=== PATIENT | female | born 1990 | race Two or more races ===

== ENCOUNTER → 2022-04-07 13:58 | Outpatient (BNVA) | payer MEDICARE, MEDICAID, SELFPAY | PROVIDERS: PCP Internal Medicine; Visit Provider Nurse Practitioner Family | DX: G43.109 Migraine with aura, not intractable, without status migrainosus (principal); G44.209 Tension-type headache, unspecified, not intractable; F31.9 Bipolar disorder, unspecified | CPT/HCPCS: 99202 ==

== ENCOUNTER → 2022-06-16 09:27 | Outpatient (BNVA) | payer MEDICARE, MEDICAID, SELFPAY | PROVIDERS: PCP Internal Medicine; Visit Provider Nurse Practitioner Family | DX: G43.109 Migraine with aura, not intractable, without status migrainosus (principal); G44.209 Tension-type headache, unspecified, not intractable; I26.99 Other pulmonary embolism without acute cor pulmonale | CPT/HCPCS: 99212 ==

== ENCOUNTER → 2022-08-12 11:41 | Outpatient (BNVA) | payer MEDICARE, MEDICAID, SELFPAY | PROVIDERS: PCP Internal Medicine; Visit Provider Nurse Practitioner Family | DX: G43.109 Migraine with aura, not intractable, without status migrainosus (principal); F31.9 Bipolar disorder, unspecified | CPT/HCPCS: Q3014 ==

== ENCOUNTER → 2022-09-01 10:30 | Outpatient (BNVA) | payer MEDICARE, MEDICAID, SELFPAY | PROVIDERS: PCP Internal Medicine; Visit Provider Nurse Practitioner Family | DX: G43.109 Migraine with aura, not intractable, without status migrainosus (principal); F31.9 Bipolar disorder, unspecified | CPT/HCPCS: 99211 ==

== ENCOUNTER 2023-05-05 15:25 | Outpatient (AMB) | payer MEDICARE, MEDICAID, SELFPAY ==
--- NOTE | 2023-05-05 15:27 | A.OFFVIS_ITS ---
Intake Intake Visit Reasons: follow up (iphone) Intake Note: Pt presents as a telehealth visit. Pt states shes been getting more headaches and migraines so thats why she wanted to follow up with Yahaira sooner. Tierce Filler Required: No Allergies trazodone Allergy (Mild, Verified 05/05/23 15:28) Agitated Medication List - Last Reconciled 05/05/23 by SASHA Flores ascorbic acid (vitamin C) PO DAILY ashwagandha extract PO DAILY betamethasone, augmented 0.05 % appl topical BID blood sugar diagnostic (FreeStyle Lite Strips) As directed buprenorphine-naloxone 2-0.5 mg 2 mg sublingual DAILY cetirizine 10 mg PO DAILY cholecalciferol (vitamin D3) PO DAILY citalopram 2.5 mg PO DAILY clonazepam 0.5 mg PO BID PRN clonazepam mg PO clonidine HCl 0.2 mg PO BEDTIME dicyclomine 10 mg PO Q6H PRN fluticasone propionate 50 mcg/actuation sprays intranasal gabapentin 400 mg PO TID galcanezumab-gnlm (Emgality Pen) 120 mg subcut ONCE 30 days lyvelfqm-dnlmz-potov-CF borate 750 mg-100 mg- 1.65 mg-108 mg ([facility]) tabs PO hydroxyzine HCl 10 mg PO TID PRN hydroxyzine pamoate 50 mg PO DAILY PRN hyoscyamine sulfate 0.125 mg PO QID PRN linaclotide (Linzess) 290 mcg PO DAILY loratadine 10 mg PO DAILY lurasidone 80 mg PO DAILY magnesium oxide 400 mg PO BEDTIME 30 days multivitamin 1 tab PO DAILY omeprazole 20 mg PO DAILY prazosin 10 mg PO BEDTIME quetiapine mg PO riboflavin (vitamin B2) 400 mg PO DAILY 30 days rivaroxaban (Xarelto) 10 mg PO DAILY rizatriptan 5 - 10 mg (0.5 - 1 x 10 mg) PO Q2H PRN 21 days semaglutide (Ozempic) mg subcut sennosides (senna) 0 mg PO tizanidine 4 mg PO BID PRN trospium ER 60 mg PO DAILY [zinc PO DAILY] HPI HPI Comments History of Present Illness Details 32-yr-old female presents for f/u televideo visit. Pt denies any significant interval medical changes. Her Eliquis was changed to Xarelto as she completed one yr w/ Eliquis- and was switched to Xarelto d/t family h/o clotting d/o. Pt states she was doing very well on Emgality, however due to a pharmacy issue, she was 2 weeks late in taking her Emgality injection and has had a significant increase in migraine attacks. She also thinks possibly the recent weather changes have also worsened her migraine burden. She is finding the Rizatriptan to not be as effective. She has had 15-16 headcahe days in the last month. [facility] Medical History delivery delivered Depression History of diabetes mellitus PTSD (post-traumatic stress disorder) Pulmonary embolism Surgical History History of gastric stapling Hx of knee surgery Social History (Updated 05/05/23 @ 15:41 by Chika Boyce CMA) Household Members: Spouse and Children Alcohol intake: current Alcohol intake frequency: a few times a month Patient Tobacco Use Status: Current everyday Tobacco user Review of Systems Const All systems reviewed & are unremarkable except as noted in HPI and below Physical Exam Const General: cooperative and no acute distress Orientation/consciousness: patient oriented x3 Resp Effort & Inspection: normal respiratory effort and able to speak in complete sentences Neuro General: patient oriented x3 Cognition (Neuro): normal cognition Psych Appearance: grossly normal Mental Status: mental status grossly normal Speech and movement: Normal speech and movement present Affect: normal affect Attitude: cooperative Assessment & Plan Assessment & Plan (1) Migraine with aura: Code(s): G43.109 - Migraine with aura, not intractable, without status migrainosus (2) Tension type headache: Code(s): G44.209 - Tension-type headache, unspecified, not intractable Plan For acute migraine treatment: Trial Eletriptan prn. May take with Tylenol. Trial Nurtec ODT 75mg qd prn. May take with Tylenol. Hold rizatriptan- has lost efficacy. Avoid NSAIDs d/t current Eliquis use. Previous trials: Sumatriptan- ineffective and made her feel weird. ? For migraine prevention treatment: Continue magnesium 400 mg q.h.s.. Continue riboflavin 400 mg Q morning. Continue gabapentin. Continue Emgality 120mg sc q month- possibly increase in monthly migraine days has been caused by 2 week delay in last Emgality inj. Future considerations- Retrying Botox or trying Atogepant. Previous migraine prevention trials: Topiramate was ineffective and caused dry mouth. Propranolol 10 mg twice a day- caused lightheadedness. Botox helped- but had end of cycle wearing off. Migraine Tx contraindications: Amitriptyline or other TCAs/SSRIs/SSNRIs d/t h/o bipolar type I. Medications: New eletriptan take 1 tab at onset of headache; if no relief, may repeat 1 tab after at least 2 hrs; max = 2 tabs/24 hrs orally every 2 hours PRN; 14 tabs 3RF migraine headache 30 days rimegepant (Nurtec ODT) take 1 tab at onset of migraine (max 1 tab per day) 75 mg PO ONCE PRN 16 tabs 3RF migraine headache 30 days Telehealth Telehealth Location of provider rendering services: practice address Location of patient: address on file Patient Identification confirmed using: Name, : Yes Telehealth method: video Patient verbally consented to treatment: Yes Patient verbally consented to billing insurance company: Yes Patient informed of any privacy concerns related to visit: Yes Minutes spent on Phone/Video with Pt.: 8 Coding Level of Care Code Tele Est Pt Level 4 (03221) Diagnoses Migraine with aura G43.109 Tension type headache G44.209
== END 2023-05-05 16:00 ==
PROVIDERS: Visit Provider Nurse Practitioner Family
DX: G43.109 Migraine with aura, not intractable, without status migrainosus (principal); G44.209 Tension-type headache, unspecified, not intractable
CPT/HCPCS: 99441

== ENCOUNTER → 2023-05-05 15:25 | Outpatient (BNVA) | payer MEDICARE, MEDICAID, SELFPAY | PROVIDERS: Visit Provider Nurse Practitioner Family ==

== ENCOUNTER 2023-09-06 11:00 | Outpatient (AMB) | payer MEDICARE, MEDICAID, SELFPAY ==
--- NOTE | 2023-09-06 11:01 | A.OFFVIS_ITS ---
Intake Intake Visit Reasons: Video appt to I-Phone for f/u migraines-Confirmed Intake Note: Pt presents as a telehealth visit for a follow up for migraines. Pt states her migraines have improved with the medication. Pt states as soon as she feels a migrain starting she will take her medication and it usually resolves within a few hours. Pt states she thinks that the medication is helping. Allergies trazodone Allergy (Mild, Verified 09/06/23 11:01) Agitated Medication List - Last Reconciled 09/06/23 by SASHA Flores ascorbic acid (vitamin C) PO DAILY ashwagandha extract PO DAILY betamethasone, augmented 0.05 % appl topical BID blood sugar diagnostic (FreeStyle Lite Strips) As directed buprenorphine-naloxone 2-0.5 mg 2 mg sublingual DAILY cetirizine 10 mg PO DAILY cholecalciferol (vitamin D3) PO DAILY citalopram 2.5 mg PO DAILY clonazepam 0.5 mg PO BID PRN clonazepam mg PO clonidine HCl 0.2 mg PO BEDTIME dicyclomine 10 mg PO Q6H PRN eletriptan take 1 tab at onset of headache; if no relief, may repeat 1 tab after at least 2 hrs; max = 2 tabs/24 hrs orally every 2 hours PRN; 30 days fluticasone propionate 50 mcg/actuation sprays intranasal gabapentin 400 mg PO TID galcanezumab-gnlm (Emgality Pen) 120 mg subcut ONCE 30 days gmjteokx-fwumi-jymch-CF borate 750 mg-100 mg- 1.65 mg-108 mg ([facility]) tabs PO hydroxyzine HCl 10 mg PO TID PRN hydroxyzine pamoate 50 mg PO DAILY PRN hyoscyamine sulfate 0.125 mg PO QID PRN linaclotide (Linzess) 290 mcg PO DAILY loratadine 10 mg PO DAILY lurasidone 80 mg PO DAILY magnesium oxide 400 mg PO BEDTIME 30 days multivitamin 1 tab PO DAILY omeprazole 20 mg PO DAILY 30 days prazosin 10 mg PO BEDTIME quetiapine mg PO riboflavin (vitamin B2) 400 mg PO DAILY 30 days rimegepant (Nurtec ODT) 75 mg PO ONCE PRN 30 days rivaroxaban (Xarelto) 10 mg PO DAILY rizatriptan 5 - 10 mg (0.5 - 1 x 10 mg) PO Q2H PRN 21 days semaglutide (Ozempic) mg subcut sennosides (senna) 0 mg PO tizanidine 4 mg PO BID PRN trospium ER 60 mg PO DAILY [zinc PO DAILY] HPI HPI Comments History of Present Illness Details 33-yr-old female presents for f/u televi rosa visit, via [employer]. Pt denies any significant interval medical changes. Pt reports she is having less migraine headaches. Now having approx 4 migraine d ays per month. Tolertaing Emgality well. The combination of Nurtec and Eletriptan is effective. She wonders about trying Botox. PFS Medical History Pulmonary embolism Depression History of diabetes mellitus PTSD (post-traumatic stress disorder) delivery delivered Surgical History History of gastric stapling Hx of knee surgery (Updated 09/06/23 @ 11:02 by Sheri Haji MA) Household Members: Spouse and Children Alcohol intake: current Alcohol intake frequency: a few times a month Patient Tobacco Use Status: Current everyday Tobacco user Cigarettes Per Day: 10 Review of Systems Const All systems reviewed & are unremarkable except as noted in HPI and below Physical Exam Const General: cooperative and no acute distress Orientation/consciousness: patient oriented x3 Resp Effort & Inspection: normal respiratory effort and able to speak in complete sentences Neuro General: patient oriented x3 Cognition (Neuro): normal cognition Psych Appearance: grossly normal Mental Status: mental status grossly normal Affect: normal affect Attitude: cooperative Assessment & Plan Assessment & Plan (1) Migraine with aura: Code(s): G43.109 - Migraine with aura, not intractable, without status migrainosus (2) Tension type headache: Code(s): G44.209 - Tension-type headache, unspecified, not intractable Plan For acute migraine treatment: Continue Eletriptan prn. May take with Tylenol. Continue Nurtec ODT 75mg qd prn. May take with Tylenol. Avoid NSAIDs d/t current Eliquis use. Previous trials: Sumatriptan- ineffective and made her feel weird. Rizatriptan- has lost efficacy. ? For migraine prevention treatment: Continue magnesium 400 mg q.h.s.. Continue riboflavin 400 mg Q morning. Continue gabapentin. Continue Emgality 120mg sc q month- possibly increase in monthly migraine days has been caused by 2 week delay in last Emgality inj. Future considerations- Retrying Botox- discussed that she currently is doing well enough to not qualify for Botox at this time. Trying Atogepant. Previous migraine prevention trials: Topiramate was ineffective and caused dry mouth. Propranolol 10 mg twice a day- caused lightheadedness. Botox helped- but had end of cycle wearing off. Migraine Tx contraindications: Amitriptyline or other TCAs/SSRIs/SSNRIs d/t h/o bipolar type I. f/u in 6 months or sooner prn Medications: Refilled galcanezumab-gnlm (Emgality Pen) 120 mg subcut ONCE 30 days 1 mL 6RF Telehealth Telehealth Location of provider rendering services: practice address Location of patient: address on file Patient Identification confirmed using: Name, : Yes Telehealth method: video Patient verbally consented to treatment: Yes Patient verbally consented to billing insurance company: Yes Patient informed of any privacy concerns related to visit: Yes Minutes spent on Phone/Video with Pt.: 8 Coding Level of Care Code Tele Est Pt Level 4 (04194) Diagnoses Migraine with aura G43.109 Tension type headache G44.209 Time Spent (min) 8
== END 2023-09-06 14:22 | disposition home or self-care (01) ==
LOC: HO.HSMS 11:00
PROVIDERS: Visit Provider Nurse Practitioner Family
DX: G43.109 Migraine with aura, not intractable, without status migrainosus (principal); G44.209 Tension-type headache, unspecified, not intractable
CPT/HCPCS: 99214

== ENCOUNTER → 2023-09-06 11:00 | Outpatient (BNVA) | payer MEDICARE, MEDICAID, SELFPAY | PROVIDERS: Visit Provider Nurse Practitioner Family ==

== ENCOUNTER 2024-02-20 10:58 | Outpatient (AMB) | payer MEDICARE, MEDICAID, SELFPAY ==
--- NOTE | 2024-02-20 11:15 | MHC.OFFVIS ---
Vital Signs 02/20/24 11:23 Height 5 ft 6 in Weight 228 lb 4 oz BMI 36.8 BP 112/80 Blood Pressure Location Lt brachial Position Sitting Pulse 86 Pulse Source Pulse Oximeter Pulse Oximetry (%) 97 Oxygen Delivery Method Room Air Intake Visit Reasons: 6 month follow up migraine/ Confirmed w/address Intake Note: Patient presents for 6 months f/u. Wants to know next steps on IV treatment. Emgality sometimes works. Allergies trazodone Allergy (Mild, Verified 02/20/24 11:20) Agitated Medication List - Last Reconciled 02/20/24 by SASHA Flores ascorbic acid (vitamin C) PO DAILY ashwagandha extract PO DAILY betamethasone, augmented 0.05 % appl topical BID blood sugar diagnostic (FreeStyle Lite Strips) As directed buprenorphine-naloxone 2-0.5 mg 2 mg sublingual DAILY cetirizine 10 mg PO DAILY cholecalciferol (vitamin D3) PO DAILY citalopram 2.5 mg PO DAILY clonazepam 0.5 mg PO BID PRN clonazepam mg PO clonidine HCl 0.2 mg PO BEDTIME dicyclomine 10 mg PO Q6H PRN eletriptan take 1 tab at onset of headache; if no relief, may repeat 1 tab after at least 2 hrs; max = 2 tabs/24 hrs orally every 2 hours PRN; 30 days fluticasone propionate 50 mcg/actuation sprays intranasal gabapentin 400 mg PO TID galcanezumab-gnlm (Emgality Pen) 120 mg subcut ONCE 30 days bzuliybr-ttinm-scsxm-CF borate 750 mg-100 mg- 1.65 mg-108 mg ([facility]) tabs PO hydroxyzine HCl 10 mg PO TID PRN hydroxyzine pamoate 50 mg PO DAILY PRN hyoscyamine sulfate 0.125 mg PO QID PRN insulin degludec (Tresiba FlexTouch U-100 insulin) units subcut linaclotide (Linzess) 290 mcg PO DAILY loratadine 10 mg PO DAILY lurasidone 80 mg PO DAILY magnesium oxide 400 mg PO BEDTIME 30 days multivitamin 1 tab PO DAILY omeprazole 20 mg PO DAILY 30 days prazosin 10 mg PO BEDTIME quetiapine mg PO riboflavin (vitamin B2) 400 mg PO DAILY 30 days rimegepant (Nurtec ODT) 75 mg PO ONCE PRN 30 days rivaroxaban (Xarelto) 10 mg PO DAILY rizatriptan 5 - 10 mg (0.5 - 1 x 10 mg) PO Q2H PRN 21 days sennosides (senna) 0 mg PO tizanidine 4 mg PO BID PRN trospium ER 60 mg PO DAILY [zinc PO DAILY] HPI Comments Details: 33-yr-old female presents for f/u visit. Pt denies any significant interval medical changes. Pt reports she has had 5 migraine attacks, lasting 2-3 days each. She is complaint w/ Emgality. She has been trying to take her acute med at onset, which works but then headache comes back and needs to repeat dose. Since the last visit, she has had severe disabling migraine attacks, where she could not do her daily attacks. Thus, we have advised pt to switch to Vyepti, for which insurance PA is pending. She is having more migraine attacks a/w aura and also nausea. Baseline headache characteristics: Prodrome symptoms: None Aura: sees sparkles before migraine Headache: [id number]-Ahwetadk-Hqgdgf, Varying, unilateral pounding pain a/w photophobia, phonophobia, osmophobia, nausea at times, some brain fog, tiredness. No focal weakness or autonomic s/s. Postdrome: Can be fatigued. [facility] Medical History Pulmonary embolism Depression History of diabetes mellitus PTSD (post-traumatic stress disorder) delivery delivered Surgical History History of gastric stapling Hx of knee surgery Social History Household Members: Spouse and Children Alcohol intake: current Alcohol intake frequency: a few times a month Patient Tobacco Use Status: Current everyday Tobacco user Cigarettes Per Day: 10 Physical Exam Vital Signs: Last Vital Signs Pulse 86 02/20/24 11:23 BP 112/80 02/20/24 11:23 Pulse Ox 97 02/20/24 11:23 Oxygen Delivery Method Room Air 02/20/24 11:23 BMI result Body Mass Index 36.8 Const General: cooperative and no acute distress Orientation/consciousness: patient oriented x3 Resp Effort & Inspection: normal respiratory effort and able to speak in complete sentences Neuro General: patient oriented x3 Cranial nerves: Yes CN's II-XII intact bilaterally Cognition (Neuro): normal cognition Psych Appearance: grossly normal Mental Status: mental status grossly normal Speech and movement: Normal speech and movement present Affect: normal affect Attitude: cooperative Assessment & Plan Assessment & Plan (1) Migraine with aura: Code(s): G43.109 - Migraine with aura, not intractable, without status migrainosus Category: Medical (2) Tension type headache: Code(s): G44.209 - Tension-type headache, unspecified, not intractable Category: Medical (3) Nausea: Code(s): R11.0 - Nausea Category: Medical Plan For acute migraine treatment: Continue Eletriptan prn. May take with Tylenol. Continue Nurtec ODT 75mg qd prn. May take with Tylenol. Ondansetron 8mg ODT prn. Avoid NSAIDs d/t current Eliquis use. Previous trials: Sumatriptan- ineffective and made her feel weird. Rizatriptan- has lost efficacy. ? For migraine prevention treatment: Continue magnesium 400 mg q.h.s.. Continue riboflavin 400 mg Q morning. Continue gabapentin. Start Vyepti 100mg IV q 3 months. Once Vyepti started, stop Emgality 120mg sc q month. Previous migraine prevention trials: Topiramate was ineffective and caused dry mouth. Propranolol 10 mg twice a day- caused lightheadedness. Botox helped- but had end of cycle wearing off. Migraine Tx contraindications: Amitriptyline or other TCAs/SSRIs/SSNRIs d/t h/o bipolar type I. Aimovig and Qulipta d/t risk for worsening constipation (pt already requires Mag and Linzess tx). ? f/u in 6 months or sooner prn Medications: New eptinezumab-jjmr (Vyepti) administer over 30 mins 100 mg IV [id number] 90 days 0RF ondansetron 8 mg PO Q8H 30 days PRN 30 tabs 3RF nausea and vomiting Coding Level of Care Code Est Pt Level 4 (23918) Diagnoses Migraine with aura G43.109 Tension type headache G44.209 Nausea R11.0
[2024-02-20 11:23] VITALS: BP 112/80; PULSE 86; O2SAT 97; BMI 36.8
== END 2024-02-20 11:30 ==
PROVIDERS: Visit Provider Nurse Practitioner Family
DX: G43.109 Migraine with aura, not intractable, without status migrainosus (principal); G44.209 Tension-type headache, unspecified, not intractable; R11.0 Nausea
CPT/HCPCS: 99214

== ENCOUNTER → 2024-02-20 10:58 | Outpatient (BNVA) | payer MEDICARE, MEDICAID, SELFPAY | PROVIDERS: Visit Provider Nurse Practitioner Family | DX: G43.109 Migraine with aura, not intractable, without status migrainosus (principal); G44.209 Tension-type headache, unspecified, not intractable; R11.0 Nausea; Z79.899 Other long term (current) drug therapy | CPT/HCPCS: 99212 ==

== ENCOUNTER 2024-09-02 10:30 | Outpatient (RCR) | payer MEDICARE, MEDICAID, SELFPAY ==
[2024-03-04 11:39] VITALS: BP 112/70; PULSE 94; RESP 18; TEMP 36.6; O2SAT 98
[2024-06-03 10:06] VITALS: BP 108/79; PULSE 78; RESP 14; TEMP 36.3; O2SAT 95
[2024-06-03] MEDS: Acetaminophen 325 MG TABLET 650 MG PO (10:56)
[2024-06-03] MEDS: diphenhydrAMINE HCL 50 MG/ML VIAL IVPUSH (11:02)
[2024-06-03] MEDS: methylPREDNISolone Sod Succ 40 MG/ML VIAL IVPUSH (11:10)
[2024-06-03] MEDS: 0.9 % Sodium Chloride Flush 10 ML SYRINGE 5 ML IVFLUSH (11:50)
[2024-09-02 10:07] VITALS: BP 112/69; PULSE 67; RESP 14; TEMP 36.3; O2SAT 97
[2024-09-02] MEDS: Acetaminophen 325 MG TABLET 650 MG PO (10:53)
[2024-09-02] MEDS: diphenhydrAMINE HCL 50 MG/ML VIAL IVPUSH (10:54)
[2024-09-02] MEDS: methylPREDNISolone Sod Succ 40 MG/ML VIAL IVPUSH (10:54)
[2024-09-02] MEDS: 0.9 % Sodium Chloride Flush 10 ML SYRINGE 5 ML IVFLUSH (11:50)
== END 2024-12-09 12:19 | disposition home or self-care (01) ==
LOC: HO.INF 10:30
PROVIDERS: PCP Internal Medicine; Visit Provider Nurse Practitioner Family
DX: G43.109 Migraine with aura, not intractable, without status migrainosus (principal)
CPT/HCPCS: 96365; 96375; J1200; J2919; J3032